=== PATIENT | male | born 1935 | race Caucasian/White ===

== ENCOUNTER 2022-05-23 13:43 | Observation (INO) | payer OTHER, MEDICARE, SELFPAY ==
[2022-05-23] VITALS (11 sets, daily range): BP systolic 101–135; BP diastolic 44–79; PULSE 78–98; RESP 16–24; TEMP 36.7–37.2; O2SAT 91–97; BMI 23.1; BMI 20.9
--- NOTE | 2022-05-23 13:47 | CRLHL7_ITS ---
For Patients: As a result of the Century Cures Act, medical imaging exams and procedure reports are released immediately into your electronic medical record. You may view this report before your referring provider. If you have questions, please contact your health care provider. INDICATION: Abdominal pain. TECHNIQUE: CT abdomen and pelvis without contrast. Coronal and sagittal reformats were generated. COMPARISON: CT of the abdomen and pelvis from 09/20/2021. FINDINGS: Lower chest: Unremarkable. Small sliding hiatal hernia. Liver: Unremarkable within limitations of lack of contrast. Gallbladder and bile ducts: Multiple dependent gallstones. Distended gallbladder. No gallbladder wall thickening or pericholecystic fluid. The bile ducts are normal in caliber Spleen: Unremarkable. Pancreas: Unremarkable. Adrenal glands: Right adrenal nodule measures Hounsfield units of less than 10, compatible with an adenoma. Left adrenal nodule measures negative Hounsfield units (3/36), compatible with an adenoma. Hyperplastic enlargement of the lateral limb of the left adrenal gland, without discrete nodule. Kidneys and Ureters: No stones or hydronephrosis. Left renal exophytic hyperdensity could be a proteinaceous or hemorrhagic cyst. Lymph Nodes and Retroperitoneum: Unremarkable. Vasculature: Atherosclerotic calcifications of the abdominal aorta and its branches. GI tract: Unremarkable. Normal in caliber. Multiple diverticula project from the colon, without findings to suggest diverticulitis. Large amount of dense stool in the distal colon and rectum. Peritoneum/Abdominal Wall: Unremarkable. No mass or infiltration. No free air or free fluid. Pelvic Viscera: Unremarkable. Bladder: Unremarkable. Bones: Stable compression deformity of T12. The bones are demineralized. Multilevel degenerative changes. No aggressive appearing lytic or blastic lesions. IMPRESSION: 1. Large volume of dense stool in the colon and rectum raises the possibility of fecal impaction. Proximal bowel loops are normal in caliber. 2. No other significant CT abnormality within limitations of lack of contrast. 3. Chronic changes as above. Please note that all CT scans at this facility use dose modulation, iterative reconstruction, and/or weight-based dosing when appropriate to reduce radiation dose to as low as reasonably achievable. Dictated by Rodrick Mccullough MD @ 05/23/2022 3:07:16 PM (Electronically Signed)
--- NOTE | 2022-05-23 13:47 | CRLHL7_ITS ---
For Patients: As a result of the Century Cures Act, medical imaging exams and procedure reports are released immediately into your electronic medical record. You may view this report before your referring provider. If you have questions, please contact your health care provider. Indication: Seizure Technique: Volumetric multidetector CT images of the head were obtained without the administration of low osmolar intravenous contrast. Comparison: None available Findings: There is no intra-axial or extra-axial fluid collection. There is no mass effect or midline shift. There is age-related cortical atrophy with mild sulcal widening and ex vacuo dilatation of the lateral ventricles. There are chronic small vessel disease changes in the subcortical and periventricular white matter without lost soliz-white differentiation. The orbits and their contents are grossly within normal limits. The bony calvarium is grossly intact. The paranasal sinuses are clear. The mastoid air cells are well aerated. Impression: Age related and chronic small vessel disease changes of the brain without acute intracranial abnormality. Please note that all CT scans at this facility use dose modulation, iterative reconstruction, and/or weight-based dosing when appropriate to reduce radiation dose to as low as reasonably achievable. Dictated by Ryan Mendoza MD @ 05/23/2022 3:06:57 PM (Electronically Signed)
--- NOTE | 2022-05-23 13:52 | ED.GENADULT ---
HPI - General Adult General Time Seen by Provider: 13:52 Date Seen: 05/23/22 Chief complaint: Unspecified Complaint, Adult Stated complaint: Siezure Time Seen by Provider: 05/23/22 13:46 Source: patient Mode of arrival: EMS Limitations: altered mental status History of Present Illness HPI narrative: The patient is an 87 year white male with Alzheimer's disease, who is cared for at home by his . Apparently they live near [place]. The patient reportedly by his discussion with the paramedics from [facility] who brought him here, felt that he had a urinary tract infection, started him on Keflex, he has had diarrhea, and he had a seizure while on the toilet today. He does have a seizure disorder ease on phenytoin. The patient states he feels well except he ?my abdomen hurts?. Due to his cognitive state is a poor historian. His wrote a nice note, force about the UTI, diarrhea, seizure. Apparently did fall, he has had no bruising about his body noted by paramedics or on initial triage. He is moving all extremities. Related Data Home Medications Medication Instructions Recorded Confirmed aspirin 81 mg chewable tablet 81 mg PO DAILY 05/23/22 05/23/22 calcium 2 tab PO TID 05/23/22 05/23/22 clopidogrel 75 mg tablet 75 mg PO DAILY 05/23/22 05/23/22 cyanocobalamin (vitamin B-12) 500 500 mcg PO DAILY 05/23/22 05/23/22 mcg tablet donepezil 10 mg tablet (Aricept) 10 mg PO DAILY 05/23/22 05/23/22 gabapentin 300 mg capsule 300 mg PO BID 05/23/22 05/23/22 lisinopril 10 mg tablet 5 mg PO DAILY 05/23/22 05/23/22 metoprolol succinate 100 mg 50 mg PO DAILY 05/23/22 05/23/22 tablet,extended release 24 hr phenytoin sodium extended 100 mg 200 mg PO HS 05/23/22 05/23/22 capsule (Dilantin Extended) phenytoin sodium extended 30 mg 60 mg PO HS 05/23/22 05/23/22 capsule rosuvastatin 40 mg tablet (Crestor) 20 mg PO HS 05/23/22 05/23/22 Allergies Allergy/AdvReac Type Severity Reaction Status Date / Time No Known Drug Allergies Allergy Verified 05/23/22 14:11 Review of Systems Status of ROS: Reports: unobtainable due to medical condition [facility] Medical History (Updated 05/24/22 @ 10:27 by Bella Mancuso MD) Benign prostatic hyperplasia with incomplete bladder emptying Cholelithiasis Chronic kidney disease, stage 3a Coronary artery disease Essential hypertension Gastroesophageal reflux disease History of alcohol abuse History of anterior wall myocardial infarction History of left heart catheterization History of small bowel obstruction Hyperlipidemia Intra-abdominal adhesions Ischemic cardiomyopathy Late onset Alzheimer's dementia without behavioral disturbance Peripheral neuropathy Seizure disorder Tobacco dependence Unstable gait Surgical History S/P left rotator cuff repair S/P right rotator cuff repair Status post exploratory laparotomy Status post insertion of drug-eluting stent into left anterior descending (LAD) artery for coronary artery disease Social History Highest level of school completed/degree received: high school graduate Smoking Status: Current every day smoker Second hand tobacco smoke exposure: No How often do you have a drink containing alcohol: never How often do you have six or more drinks on one occasion: Never AUDIT-C Alcohol total score: 0 Non-prescribed substance use: denies use Caffeine: Yes (2 cups of coffee a day) Are you now , , , , never or living with a partner: Social isolation score (0-1 are the most socially isolated patients): 1 service: Yes Exam Narrative: Exam Narrative: Objective: The patient is an 87-year-old male who is somewhat disheveled, has evidence of diarrhea. Vital signs unremarkable HEENT shows dry mucous membranes Neck is supple Chest is clear Heart rhythm regular 2/6 systolic murmur Abdomen benign soft, but mild guarding due to discomfort. No palpable masses Extremities are no edema Neurologic nonfocal upper lower extremities moving all extremities, hip movement bilaterally is unremarkable, pelvis stable Const: Vital Signs, click to edit/add: Vital Signs - 24 hr 05/23/22 17:00 05/23/22 18:13 05/23/22 17:30 Temperature 98.1 F Pulse Rate [Left P ulse Oximeter] 81 78 Pulse Rate [Left R adial] 85 Respiratory Rate 16 Blood Pressure [Le ft Arm] 135/69 Blood Pressure [Ri ght Upper Arm] 126/65 Pulse Oximetry 94 Oxygen Delivery Me thod Room Air 05/23/22 20:15 05/23/22 22:48 05/23/22 22:48 Temperature 98.9 F 98.8 F Pulse Rate [Left P ulse Oximeter] Pulse Rate [Left R adial] 78 80 80 Respiratory Rate 16 24 24 Blood Pressure [Le ft Arm] 105/44 L 123/69 Blood Pressure [Ri ght Upper Arm] Pulse Oximetry 96 91 Oxygen Delivery Me thod Room Air Room Air 05/24/22 02:16 05/24/22 07:49 05/24/22 07:49 Temperature 99.6 F 98.4 F Pulse Rate [Left P ulse Oximeter] Pulse Rate [Left R adial] 90 87 87 Respiratory Rate 24 22 22 Blood Pressure [Le ft Arm] 111/63 108/65 Blood Pressure [Ri ght Upper Arm] Pulse Oximetry 91 91 Oxygen Delivery Me thod Room Air Room Air Course Vital Signs Vital signs: Initial Vital Signs Temperature 98.3 F 05/23/22 13:48 Temperature Source Temporal Artery Scan 05/23/22 13:48 Pulse Rate 98 05/23/22 13:48 Blood Pressure 126/74 05/23/22 13:48 Blood Pressure Mean 91 05/23/22 13:48 Blood Pressure Position Supine 05/23/22 13:48 Pulse Oximetry 97 05/23/22 13:48 Oxygen Delivery Method 05/23/22 13:48 Vital Signs Temperature 98.3 F 05/23/22 13:48 Pulse Rate 98 05/23/22 13:48 Blood Pressure 126/74 05/23/22 13:48 Pulse Oximetry 97 05/23/22 13:48 Oxygen Delivery Method 05/23/22 13:48 Temperature 97.6 F 05/24/22 14:00 Pulse Rate 82 05/24/22 14:00 Respiratory Rate 21 05/24/22 14:00 Blood Pressure 114/69 05/24/22 14:00 Pulse Oximetry 93 05/24/22 14:00 Oxygen Delivery Method 05/24/22 14:00 Medical Decision Making MDM Narrative Medical decision making narrative: The patient is an 87 white male with Alzheimer's disease and history of a seizure disorder who lives at home with his , who does most of the care for him per the paramedics. He apparently has had diarrhea, she is concerned about a UTI, started him on Keflex today, he has had diarrhea for a couple of days, and had a seizure while he was on the toilet today. He apparently did fall, was not injured. He denies discomfort or problems right now that he says ?my stomach hurts ?. Patient denies chest pain, shortness of breath, fevers or chills, but he does have L time risen is a generally poor historian Addendum: The patient's white blood cell count is markedly elevated at 24,000 four thousand, blood cultures and urine culture be obtained, IV antibiotics to be started. The patient will get hydration in the form of normal saline. His head CT scan looks unremarkable other than chronic age-related changes, his abdominal pelvic CT shows fecal retention, no obvious obstruction or intra-abdominal infection or abscess. Patient with history of elevated white count, seizure, generalized debility and L mcneill Disease likely should be admitted for IV fluids, antibiotics until cultures return, C diff. Will discuss with hospitalist. Lab Data Labs: Lab Results 05/23/22 05/23/22 05/23/22 Range/Units 13:48 14:12 14:12 WBC 24.25 H (4.50-11.00) K/uL RBC 4.27 L (4.30-5.90) m/uL Hgb 13.1 L (13.5-17.5) gm/dL Hct 40.4 (37.0-53.0) % MCV 95 (80-100) fL MCH 31 (26-34) pg MCHC 32 (32-36) gm/dL RDW Coeff of Frank 14.4 (11.5-15.5) % Plt Count 501 H (140-440) K/uL Neut % (Auto) 88.6 H (42.0-72.0) % Lymph % (Auto) 4.3 L (20-44) % [place] % (Auto) 6.8 (0.0-11.0) % Eos % (Auto) 0.0 (0.0-7.0) % Baso % (Auto) 0.1 (0.0-3.0) % Neut # (Auto) 21.50 H (1.7-7.0) K/uL Lymph # (Auto) 1.00 (0.90-2.90) K/uL [place] # (Auto) 1.60 H (0.00-0.90) K/UL Eos # (Auto) 0.00 (0.00-0.50) K/uL Baso # (Auto) 0.00 (0.00-0.30) K/uL Abs Immat Gran (auto) 0.06 (0.00-0.30) K/uL Diff Slide Review (Acceptable) INR (0.91-1.10) APTT (23-33) Seconds VBG pH (7.32-7.43) VBG pCO2 (40-50) mmHG VBG pO2 (25-47) mmHG VBG HCO3 (21-28) mmol/L Sodium 131 L (135-149) mmol/L Potassium 3.9 (3.6-5.1) mmol/L Chloride 98 (96-114) mmol/L Carbon Dioxide 28 (20-32) mmol/L BUN 13 (7-30) mg/dL Creatinine 1.4 (0.5-1.5) mg/dL Estimated Creat Clear 42.07 Estimated GFR 49 ml/min Glucose 122 H (60-115) mg/dL Lactate (0.5-1.9) mmol/L Venous Lactic Acid (Serial Order) Calcium 8.3 L (8.4-10.6) mg/dL Total Bilirubin (0.1-1.5) mg/dL Direct Bilirubin (0.0-0.5) mg/dL AST (12-35) U/L ALT (4-50) U/L Alkaline Phosphatase (40-150) U/L C-Reactive Protein 0.6 (0.5-1.0) mg/dL NT-Pro-B Natriuret Pep (0-450) PG/mL Total Protein (6.0-8.3) g/dL Albumin (3.3-5.0) g/dL Amylase 56 (18-89) U/L Urine Color (Yellow) Urine Appearance (Clear) Urine pH (5.0-8.5) Ur Specific Ponce (1.000-1.030) Urine Protein (Negative) Urine Glucose (UA) (Negative) Urine Ketones (Negative) Urine Blood (Negative) Urine Nitrite (Negative) Urine Bilirubin (Negative) Urine Urobilinogen (0.2-1.0) Ur Leukocyte Esterase (Negative) Urine RBC (0-2) Urine WBC (0-5) Ur Squamous Epith Cells (None-Few) Hyaline Casts (None-Few) Stl C.difficile Tox PCR (Negative) Phenytoin (10.0-20.0) ug/mL Free Phenytoin Total Phenytoin Percent Free Phenytoin Ethyl Alcohol < 0.01 L (0.01-0.03) % St C. diff Tox Epid 027 (Negative) SARS-CoV-2 (PCR) Negative SARS-CoV-2 (Negative) 05/23/22 05/23/22 05/23/22 Range/Units 14:12 14:12 14:12 WBC (4.50-11.00) K/uL RBC (4.30-5.90) m/uL Hgb (13.5-17.5) gm/dL Hct (37.0-53.0) % MCV (80-100) fL MCH (26-34) pg MCHC (32-36) gm/dL RDW Coeff of Frank (11.5-15.5) % Plt Count (140-440) K/uL Neut % (Auto) (42.0-72.0) % Lymph % (Auto) (20-44) % [place] % (Auto) (0.0-11.0) % Eos % (Auto) (0.0-7.0) % Baso % (Auto) (0.0-3.0) % Neut # (Auto) (1.7-7.0) K/uL Lymph # (Auto) (0.90-2.90) K/uL [place] # (Auto) (0.00-0.90) K/UL Eos # (Auto) (0.00-0.50) K/uL Baso # (Auto) (0.00-0.30) K/uL Abs Immat Gran (auto) (0.00-0.30) K/uL Diff Slide Review (Acceptable) INR 0.98 (0.91-1.10) APTT 28 (23-33) Seconds VBG pH 7.377 (7.32-7.43) VBG pCO2 49 (40-50) mmHG VBG pO2 33.8 (25-47) mmHG VBG HCO3 29 H (21-28) mmol/L Sodium (135-149) mmol/L Potassium (3.6-5.1) mmol/L Chloride (96-114) mmol/L Carbon Dioxide (20-32) mmol/L BUN (7-30) mg/dL Creatinine (0.5-1.5) mg/dL Estimated Creat Clear Estimated GFR ml/min Glucose (60-115) mg/dL Lactate (0.5-1.9) mmol/L Venous Lactic Acid (Serial Order) Calcium (8.4-10.6) mg/dL Total Bilirubin 0.6 (0.1-1.5) mg/dL Direct Bilirubin 0.0 (0.0-0.5) mg/dL AST 32 (12-35) U/L ALT 12 (4-50) U/L Alkaline Phosphatase 183 H (40-150) U/L C-Reactive Protein (0.5-1.0) mg/dL NT-Pro-B Natriuret Pep 4000 H (0-450) PG/mL Total Protein 7.4 (6.0-8.3) g/dL Albumin 3.8 (3.3-5.0) g/dL Amylase (18-89) U/L Urine Color (Yellow) Urine Appearance (Clear) Urine pH (5.0-8.5) Ur Specific Ponce (1.000-1.030) Urine Protein (Negative) Urine Glucose (UA) (Negative) Urine Ketones (Negative) Urine Blood (Negative) Urine Nitrite (Negative) Urine Bilirubin (Negative) Urine Urobilinogen (0.2-1.0) Ur Leukocyte Esterase (Negative) Urine RBC (0-2) Urine WBC (0-5) Ur Squamous Epith Cells (None-Few) Hyaline Casts (None-Few) Stl C.difficile Tox PCR (Negative) Phenytoin (10.0-20.0) ug/mL Free Phenytoin Total Phenytoin Percent Free Phenytoin Ethyl Alcohol (0.01-0.03) % St C. diff Tox Epid 027 (Negative) SARS-CoV-2 (PCR) (Negative) 05/23/22 05/23/22 05/23/22 Range/Units 14:12 14:12 14:12 WBC (4.50-11.00) K/uL RBC (4.30-5.90) m/uL Hgb (13.5-17.5) gm/dL Hct (37.0-53.0) % MCV (80-100) fL MCH (26-34) pg MCHC (32-36) gm/dL RDW Coeff of Frank (11.5-15.5) % Plt Count (140-440) K/uL Neut % (Auto) (42.0-72.0) % Lymph % (Auto) (20-44) % [place] % (Auto) (0.0-11.0) % Eos % (Auto) (0.0-7.0) % Baso % (Auto) (0.0-3.0) % Neut # (Auto) (1.7-7.0) K/uL Lymph # (Auto) (0.90-2.90) K/uL [place] # (Auto) (0.00-0.90) K/UL Eos # (Auto) (0.00-0.50) K/uL Baso # (Auto) (0.00-0.30) K/uL Abs Immat Gran (auto) (0.00-0.30) K/uL Diff Slide Review (Acceptable) INR (0.91-1.10) APTT (23-33) Seconds VBG pH (7.32-7.43) VBG pCO2 (40-50) mmHG VBG pO2 (25-47) mmHG VBG HCO3 (21-28) mmol/L Sodium (135-149) mmol/L Potassium (3.6-5.1) mmol/L Chloride (96-114) mmol/L Carbon Dioxide (20-32) mmol/L BUN (7-30) mg/dL Creatinine (0.5-1.5) mg/dL Estimated Creat Clear Estimated GFR ml/min Glucose (60-115) mg/dL Lactate (0.5-1.9) mmol/L Venous Lactic Acid (Serial Order) Calcium (8.4-10.6) mg/dL Total Bilirubin (0.1-1.5) mg/dL Direct Bilirubin (0.0-0.5) mg/dL AST (12-35) U/L ALT (4-50) U/L Alkaline Phosphatase (40-150) U/L C-Reactive Protein (0.5-1.0) mg/dL NT-Pro-B Natriuret Pep (0-450) PG/mL Total Protein (6.0-8.3) g/dL Albumin (3.3-5.0) g/dL Amylase (18-89) U/L Urine Color (Yellow) Urine Appearance (Clear) Urine pH (5.0-8.5) Ur Specific Ponce (1.000-1.030) Urine Protein (Negative) Urine Glucose (UA) (Negative) Urine Ketones (Negative) Urine Blood (Negative) Urine Nitrite (Negative) Urine Bilirubin (Negative) Urine Urobilinogen (0.2-1.0) Ur Leukocyte Esterase (Negative) Urine RBC (0-2) Urine WBC (0-5) Ur Squamous Epith Cells (None-Few) Hyaline Casts (None-Few) Stl C.difficile Tox PCR (Negative) Phenytoin 5.3 L (10.0-20.0) ug/mL Free Phenytoin Cancelled Total Phenytoin Cancelled Percent Free Phenytoin Cancelled Ethyl Alcohol (0.01-0.03) % St C. diff Tox Epid 027 (Negative) SARS-CoV-2 (PCR) (Negative) 05/23/22 05/23/22 05/24/22 Range/Units 14:48 17:00 08:55 WBC 25.28 H* (4.50-11.00) K/uL RBC 3.86 L (4.30-5.90) m/uL Hgb 12.0 L (13.5-17.5) gm/dL Hct 36.3 L (37.0-53.0) % MCV 94 (80-100) fL MCH 31 (26-34) pg MCHC 33 (32-36) gm/dL RDW Coeff of Frank 14.5 (11.5-15.5) % Plt Count 401 (140-440) K/uL Neut % (Auto) 83.9 H (42.0-72.0) % Lymph % (Auto) 6.0 L (20-44) % [place] % (Auto) 9.3 (0.0-11.0) % Eos % (Auto) 0.0 (0.0-7.0) % Baso % (Auto) 0.2 (0.0-3.0) % Neut # (Auto) 21.20 H (1.7-7.0) K/uL Lymph # (Auto) 1.50 (0.90-2.90) K/uL [place] # (Auto) 2.40 H (0.00-0.90) K/UL Eos # (Auto) 0.00 (0.00-0.50) K/uL Baso # (Auto) 0.10 (0.00-0.30) K/uL Abs Immat Gran (auto) 0.14 (0.00-0.30) K/uL Diff Slide Review Acceptable Review (Acceptable) INR (0.91-1.10) APTT (23-33) Seconds VBG pH (7.32-7.43) VBG pCO2 (40-50) mmHG VBG pO2 (25-47) mmHG VBG HCO3 (21-28) mmol/L Sodium (135-149) mmol/L Potassium (3.6-5.1) mmol/L Chloride (96-114) mmol/L Carbon Dioxide (20-32) mmol/L BUN (7-30) mg/dL Creatinine (0.5-1.5) mg/dL Estimated Creat Clear Estimated GFR ml/min Glucose (60-115) mg/dL Lactate (0.5-1.9) mmol/L Venous Lactic Acid (Serial Order) Calcium (8.4-10.6) mg/dL Total Bilirubin (0.1-1.5) mg/dL Direct Bilirubin (0.0-0.5) mg/dL AST (12-35) U/L ALT (4-50) U/L Alkaline Phosphatase (40-150) U/L C-Reactive Protein (0.5-1.0) mg/dL NT-Pro-B Natriuret Pep (0-450) PG/mL Total Protein (6.0-8.3) g/dL Albumin (3.3-5.0) g/dL Amylase (18-89) U/L Urine Color Yellow (Yellow) Urine Appearance Clear (Clear) Urine pH 7.5 (5.0-8.5) Ur Specific Ponce 1.020 (1.000-1.030) Urine Protein 1+ A (Negative) Urine Glucose (UA) Negative (Negative) Urine Ketones Negative (Negative) Urine Blood 1+ A (Negative) Urine Nitrite Positive A (Negative) Urine Bilirubin Negative (Negative) Urine Urobilinogen 0.2 (0.2-1.0) Ur Leukocyte Esterase Negative (Negative) Urine RBC 5-10 A (0-2) Urine WBC 0-2 (0-5) Ur Squamous Epith Cells Few (None-Few) Hyaline Casts Few (None-Few) Stl C.difficile Tox PCR Negative (Negative) Phenytoin (10.0-20.0) ug/mL Free Phenytoin Total Phenytoin Percent Free Phenytoin Ethyl Alcohol (0.01-0.03) % St C. diff Tox Epid 027 PRESUMPTIVE NEGATIVE (Negative) SARS-CoV-2 (PCR) (Negative) 05/24/22 05/24/22 Range/Units 08:55 08:55 WBC (4.50-11.00) K/uL RBC (4.30-5.90) m/uL Hgb (13.5-17.5) gm/dL Hct (37.0-53.0) % MCV (80-100) fL MCH (26-34) pg MCHC (32-36) gm/dL RDW Coeff of Frank (11.5-15.5) % Plt Count (140-440) K/uL Neut % (Auto) (42.0-72.0) % Lymph % (Auto) (20-44) % [place] % (Auto) (0.0-11.0) % Eos % (Auto) (0.0-7.0) % Baso % (Auto) (0.0-3.0) % Neut # (Auto) (1.7-7.0) K/uL Lymph # (Auto) (0.90-2.90) K/uL [place] # (Auto) (0.00-0.90) K/UL Eos # (Auto) (0.00-0.50) K/uL Baso # (Auto) (0.00-0.30) K/uL Abs Immat Gran (auto) (0.00-0.30) K/uL Diff Slide Review (Acceptable) INR (0.91-1.10) APTT (23-33) Seconds VBG pH (7.32-7.43) VBG pCO2 (40-50) mmHG VBG pO2 (25-47) mmHG VBG HCO3 (21-28) mmol/L Sodium 134 L (135-149) mmol/L Potassium 3.7 (3.6-5.1) mmol/L Chloride 105 (96-114) mmol/L Carbon Dioxide 23 (20-32) mmol/L BUN 15 (7-30) mg/dL Creatinine 1.4 (0.5-1.5) mg/dL Estimated Creat Clear 38.14 Estimated GFR 49 ml/min Glucose 93 (60-115) mg/dL Lactate 0.9 (0.5-1.9) mmol/L Venous Lactic Acid (Serial Order) Calcium 8.0 L (8.4-10.6) mg/dL Total Bilirubin 0.3 (0.1-1.5) mg/dL Direct Bilirubin (0.0-0.5) mg/dL AST 15 (12-35) U/L ALT 9 (4-50) U/L Alkaline Phosphatase 141 (40-150) U/L C-Reactive Protein (0.5-1.0) mg/dL NT-Pro-B Natriuret Pep (0-450) PG/mL Total Protein 6.2 (6.0-8.3) g/dL Albumin 3.1 L (3.3-5.0) g/dL Amylase (18-89) U/L Urine Color (Yellow) Urine Appearance (Clear) Urine pH (5.0-8.5) Ur Specific [place]once (1.000-1.030) Urine Protein (Negative) Urine Glucose (UA) (Negative) Urine Ketones (Negative) Urine Blood (Negative) Urine Nitrite (Negative) Urine Bilirubin (Negative) Urine Urobilinogen (0.2-1.0) Ur Leukocyte Esterase (Negative) Urine RBC (0-2) Urine WBC (0-5) Ur Squamous Epith Cells (None-Few) Hyaline Casts (None-Few) Stl C.difficile Tox PCR (Negative) Phenytoin (10.0-20.0) ug/mL Free Phenytoin Total Phenytoin Percent Free Phenytoin Ethyl Alcohol (0.01-0.03) % St C. diff Tox Epid 027 (Negative) SARS-CoV-2 (PCR) (Negative) Discharge Plan Discharge Clinical Impression: Diarrhea, Seizure, Weakness Patient Disposition: Admitted As Inpatient Condition: Stable
--- NOTE | 2022-05-23 14:45 | ED.NURSE ---
Small skin tear on pt's posterior R calf bandaged with telfa and coban.
[2022-05-23 14:47] LABS: Basophils Percent Auto 0.1 % (0.0-3.0); Hematocrit 40.4 % (37.0-53.0); Hemoglobin* 13.1 gm/dL (13.5-17.5); Immature Granulocytes Abs Auto 0.06 K/uL (0.00-0.30); Lymphocytes Percent Auto 4.3 % (20-44); Mean Corpuscular HGB Conc 32 gm/dL (32-36); Mean Corpuscular Hemoglobin 31 pg (26-34); Mean Corpuscular Volume 95 fL (80-100); Monocytes Percent Auto 6.8 % (0.0-11.0); Neutrophils Percent Auto 88.6 % (42.0-72.0); Platelet Count* 501 K/uL (140-440); RDW Coefficient of Variation % 14.4 % (11.5-15.5); Red Blood Count 4.27 m/uL (4.30-5.90); White Blood Count* 24.25 K/uL (4.50-11.00)
--- NOTE | 2022-05-23 14:48 | ED.NURSE ---
Pt incontinent of stool. Pt changed out of clothing and dirty brief into clean brief and gown. Clean linens applied to bed. Pt continues to be incontinent of stool, nearly constant but very small amounts of liquid stool. Pt assisted to commode. Unable to provide UA at this time. Small amount of liquid stool collected from hat and given to lab.
[2022-05-23 14:50] LABS: Slide Review Reflex No
[2022-05-23 14:53] LABS: HCO3 VBG 29 mmol/L (21-28); PCO2 VBG 49 mmHG (40-50); PO2 VBG 33.8 mmHG (25-47); pH VBG 7.377 (7.32-7.43)
[2022-05-23 15:01] LABS: SARS PCR* Negative SARS-CoV-2 (Negative)
[2022-05-23] MEDS: 0.9 % SODIUM CHLORIDE 1000 ml 1,000 ML 6000 ML IV (15:18)
[2022-05-23] MEDS: PIPERACILLIN/TAZOBACTAM 3.375 GM in 0.9 % SODIUM CHLORIDE Mini-bag 100 ML IVPB (15:20)
--- NOTE | 2022-05-23 15:37 | ED.NURSE ---
Pt's Bruna called for an update, pt okay with chief underwriter updating her. Update provided. Bruna's phone number: [phone]
[2022-05-23 15:41] LABS: Chloride* 98 mmol/L (96-114); Potassium* 3.9 mmol/L (3.6-5.1); Sodium* 131 mmol/L (135-149)
[2022-05-23 15:43] LABS: Amylase* 56 U/L (18-89); Creatinine* 1.4 mg/dL (0.5-1.5); Est. Creatinine Clearance* 42.07; Estimated Glomerular Filt Rate 49 ml/min
[2022-05-23 15:43] LABS: C.Difficile Negative (Negative); CDIFFEPI 027 PRESUMPTIVE NEGATIVE (Negative)
[2022-05-23 15:44] LABS: Blood Urea Nitrogen* 13 mg/dL (7-30); Calcium* 8.3 mg/dL (8.4-10.6); Carbon Dioxide* 28 mmol/L (20-32); Glucose* 122 mg/dL (60-115)
[2022-05-23 15:47] LABS: C Reactive Protein* 0.6 mg/dL (0.5-1.0); Ethanol* < 0.01 % (0.01-0.03)
[2022-05-23 16:16] LABS: INR 0.98 (0.91-1.10); Partial Thromboplastin Time* 28 Seconds (23-33); Prothrombin Time 13.4 Seconds
[2022-05-23 16:27] LABS: Albumin* 3.8 g/dL (3.3-5.0)
[2022-05-23 16:30] LABS: Bilirubin Total* 0.6 mg/dL (0.1-1.5); Total Protein* 7.4 g/dL (6.0-8.3)
[2022-05-23 16:31] LABS: Alanine Aminotransferase* 12 U/L (4-50); Alkaline Phosphatase* 183 U/L (40-150); Aspartate Amino Transferase* 32 U/L (12-35)
[2022-05-23 16:40] LABS: NT Pro B Type NatriureticPept* 4000 PG/mL (0-450)
--- NOTE | 2022-05-23 17:00 | ED.NURSE ---
16Fr Espinosa catheter placed at direction of MD García. 10mL in syringe balloon. Approx 1200 mLs in drainage after placement. UA collected and sent to lab.
[2022-05-23 17:17] LABS: Phenytoin Dilantin* 5.3 ug/mL (10.0-20.0)
--- NOTE | 2022-05-23 17:18 | W.PC.EDHO ---
Primary Language: Greenlandic Preferred Language: Orientation Status: [] Alert & Oriented [] Slight Confusion [x] Known Dx Dementia Transfers By: [] Assist of 1 [x] Assist of 2 [] Lift Active Medications Discontinued Medications Generic Name Dose Route Start Last Admin Trade Name Enzo PRN Reason Stop Dose Admin Sodium Chloride 1,000 mls @ 6,000 mls/hr 05/23/22 14:00 05/23/22 15:18 0.9 % Sodium Chloride 1000 Ml IV 05/23/22 14:09 6,000 mls/hr .Q10M ARIADNE Administration Piperacillin Sod/Tazobactam 100 mls @ 200 mls/hr 05/23/22 14:54 05/23/22 15:58 Sod 3.375 gm/ Sodium Chloride IVPB 05/23/22 14:55 Infused ONCE ONE Infusion Description of Symptoms ED Triage Present Problem Pt hx of seizure disorder, UTIs, and bowel Description obstruction. Pt has diarrhea. Had seizure this AM while having a BM. Also has blood in urine, being treated for UTI. Female History Patient Pain Pain Description [Lower Dull, Achy Abdomen] Pain Description [Lower Dull, Achy Abdomen] Pain Intensity [Lower Abdomen] 1 Pain Intensity [Lower Abdomen] 1 Pain Intensity 1 Pain Intensity 1 Pain Scale Used [Lower Abdomen Numeric (1 - 10) ] Pain Scale Used [Lower Abdomen Numeric (1 - 10) ] Pain Scale Used Numeric (1 - 10) Pain Scale Used Numeric (1 - 10) Pain Frequency [Lower Abdomen] Constant IV Insertion/Site Date of IV Line Insertion [ 05/23/22 Left Antecubital] Oxygen Administration Pulse Oximetry 93 Pulse Oximetry 97 Oxygen Delivery Method Room Air Oxygen Delivery Method Room Air Cardiac Monitoring EKG Method 12 Lead
[2022-05-23 17:19] LABS: Appearance Urine Clear (Clear); Bilirubin Urine Negative (Negative); Blood Urine 1+ (Negative); Color Urine Yellow (Yellow); Glucose Urine Negative (Negative); Ketones Urine Negative (Negative); Leukocyte Esterase Urine Negative (Negative); Nitrite Urine Positive (Negative); Protein Urine 1+ (Negative); Urobilinogen Urine 0.2 (0.2-1.0); pH Urine 7.5 (5.0-8.5)
--- NOTE | 2022-05-23 17:32 | ED.NURSE ---
Addendum entered by Samuel Roth RN 05/23/22 17:42: Scant amount of blood noted at urethral meatus when brief was changed. Original Note: Pt continues to be incontinent of small amount of liquid stool. Pt cleaned with estrella wipes and clean brief applied.
--- NOTE | 2022-05-23 17:34 | PM.IMHP1 ---
Hospitalist- H&P: HPI History of Present Illness Time Seen by Provider: 15:30 Date Seen: 05/23/22 Chief complaint: Siezure Narrative: Shiv Fernandez is a 87 year old man with a known seizure disorder for which he is on the antiepileptic medication phenytoin daily. While sitting on the toilet today he had a seizure episode. subsequently summoned EMS who brought him into the emergency department for further assessment. Patient has underlying Alzheimer's type of dementia. With his episode of seizure earlier today he is still somewhat somnolent. Much of the information we obtained is from his . Has had a couple of days of some abdominal discomfort. Does not always have a daily bowel movement. Has had episodes of loose stools the last few days. Denies fevers, rigors, diaphoresis. Also denies dysuria, urgency, frequency, or hematuria. As far as he is where he is emptying his bladder. Oral intake has not changed from his usual. Denies nausea, vomiting, dyspepsia, dysphagia, odynophagia. Denies aspiration. No recent trauma, injury, or travel. To the best of his ability and his 's ability to discern they have not been exposed to COVID recently. Has not had any recent runny nose, cough, shortness of breath, chest heaviness, pressure, tightness, or pain. No recent lightheadedness or dizziness. Review of Systems Status of ROS: Reports: 6 or more systems reviewed and unremarkable except as noted in History and below Narrative: No alteration in ability to communicate. Sleeps much of the day. is his primary caregiver. indicates that she is not able to continue to meet his needs at this time. No weight gain or weight loss. No focal motor neurologic deficits. No heat or cold intolerance. Denies polyuria, polydipsia, polyphagia. Weight reportedly has been stable. Denies unusual myalgias or arthralgias or swollen joints. Denies rashes. Historically he has had urinary retention and required Espinosa catheter while in hospital. Has not had a catheter now for over 6 months. Last time he had this was in September of 2021. [facility] Medical History (Updated 05/23/22 @ 18:19 by Kulwinder García MD) Benign prostatic hyperplasia with incomplete bladder emptying Cholelithiasis Chronic kidney disease, stage 3a Coronary artery disease Essential hypertension Gastroesophageal reflux disease History of alcohol abuse History of anterior wall myocardial infarction History of left heart catheterization History of small bowel obstruction Hyperlipidemia Intra-abdominal adhesions Ischemic cardiomyopathy Late onset Alzheimer's dementia without behavioral disturbance Peripheral neuropathy Seizure disorder Tobacco dependence Unstable gait Surgical History S/P left rotator cuff repair S/P right rotator cuff repair Status post exploratory laparotomy Status post insertion of drug-eluting stent into left anterior descending (LAD) artery for coronary artery disease Social History Highest level of school completed/degree received: high school graduate Smoking Status: Current every day smoker Second hand tobacco smoke exposure: No How often do you have a drink containing alcohol: never How often do you have six or more drinks on one occasion: Never AUDIT-C Alcohol total score: 0 Non-prescribed substance use: denies use Caffeine: Yes (2 cups of coffee a day) Are you now , , , , never or living with a partner: Social isolation score (0-1 are the most socially isolated patients): 1 service: Yes Meds Home Medications and Allergies Home Medications Medication Instructions Recorded Confirmed Type aspirin 81 mg chewable tablet 81 mg PO DAILY 05/23/22 05/23/22 History calcium 2 tab PO TID 05/23/22 05/23/22 History clopidogrel 75 mg tablet mg 05/23/22 History cyanocobalamin (vitamin B-12) 500 500 mcg PO DAILY 05/23/22 05/23/22 History mcg tablet donepezil 10 mg tablet (Aricept) 10 mg PO DAILY 05/23/22 05/23/22 History gabapentin 300 mg capsule 300 mg PO BID 05/23/22 05/23/22 History lisinopril 10 mg tablet 5 mg PO DAILY 05/23/22 05/23/22 History metoprolol succinate 100 mg 50 mg PO DAILY 05/23/22 05/23/22 History tablet,extended release 24 hr phenytoin sodium extended 100 mg 200 mg PO HS 05/23/22 05/23/22 History capsule (Dilantin Extended) phenytoin sodium extended 30 mg 60 mg PO HS 05/23/22 05/23/22 History capsule rosuvastatin 40 mg tablet (Crestor) 20 mg PO HS 05/23/22 05/23/22 History Allergies Allergy/AdvReac Type Severity Reaction Status Date / Time No Known Drug Allergies Allergy Verified 05/23/22 14:11 Exam Narrative: Exam Narrative: Does not appear in any acute distress. He is sound asleep on the cot in the emergency department when I 1st see him. Is arousable. When awake he is alert and oriented to self, reorient tubal to place, time. Does not recall much of what happened at all or how he arrived here. Cooperative. Appears thin. Prominent bony features of face. Thin neck and upper and lower extremities consistent with muscle atrophy. Somewhat hard of hearing but is symmetric and bilateral. Normal external auditory canals and tympanic membranes. Midline nasal septum. Dentition good repair. Buccal mucosa somewhat tacky. No oral lesions. No bite [place]. No icterus. No conjunctival injection. Pupils equally round and reactive to light and accommodation. Extraocular muscles intact. Neck is supple. Midline trachea. No JVD, hepatojugular reflux, or carotid bruits. No lymphadenopathy in the pre or postauricular chains, anterior-posterior cervical chains, submandibular submental fossa, supra or infraclavicular fossa, or axilla bilaterally. Lungs clear to auscultation without wheezing, rhonchi, or rales. No CVA tenderness. Heart tones with regular rhythm, normal S1-S2. Soft systolic murmur. No gallop or rub. PMI not laterally displaced. Abdomen with active bowel sounds, soft, nontender. No rebound or guarding. Somewhat full suprapubic area of abdomen. Palpable upper extremity pulses and barely palpable lower extremity pulses. No lower extremity edema. With assistance he is able to transfer from supine to sitting and sitting to standing. Seems to have generalized weakness. Skin is intact. No rashes, petechiae, cyanosis. Const: Vital Signs, click to edit/add: Vital Signs - 24 hr 05/23/22 13:48 05/23/22 13:50 05/23/22 15:10 Temperature 98.3 F Pulse Rate [Left P ulse Oximeter] 98 Blood Pressure [Ri ght Upper Arm] 126/74 126/74 101/59 L Pulse Oximetry 97 Oxygen Delivery Me thod Room Air 05/23/22 15:30 05/23/22 16:00 05/23/22 16:30 Temperature Pulse Rate [Left P ulse Oximeter] 81 80 81 Blood Pressure [Ri ght Upper Arm] 105/60 122/79 131/73 Pulse Oximetry 93 95 Oxygen Delivery Me thod Room Air Room Air Documenting provider has reviewed patient's vital signs: yes Hospitalist - H&P: Result Labs Labs: Short CBC 05/23/22 Range/Units 14:12 WBC 24.25 H (4.50-11.00) K/uL Hgb 13.1 L (13.5-17.5) gm/dL Hct 40.4 (37.0-53.0) % Plt Count 501 H (140-440) K/uL BMP 05/23/22 14:12 Sodium 131 L Potassium 3.9 Chloride 98 Carbon Dioxide 28 BUN 13 Creatinine 1.4 Glucose 122 H Calcium 8.3 L Liver Function 05/23/22 Range/Units 14:12 Total Bilirubin 0.6 (0.1-1.5) mg/dL Direct Bilirubin 0.0 (0.0-0.5) mg/dL AST 32 (12-35) U/L ALT 12 (4-50) U/L Alkaline Phosphatase 183 H (40-150) U/L Albumin 3.8 (3.3-5.0) g/dL Urine 05/23/22 Range/Units 17:00 Urine Color Yellow (Yellow) Urine Appearance Clear (Clear) Urine pH 7.5 (5.0-8.5) Ur Specific [place] 1.020 (1.000-1.030) Urine Protein 1+ A (Negative) Urine Glucose (UA) Negative (Negative) Imaging CT scan - head: Attestation: I have reviewed the pertinent imaging results. Radiologist's impression: Age related and chronic small vessel disease changes of the brain without acute intracranial abnormality. CT scan - abdomen: Attestation: I have reviewed the pertinent imaging results. Radiologist's impression: 1. Large volume of dense stool in the colon and rectum raises the possibility of fecal impaction. Proximal bowel loops are normal in caliber. 2. No other significant CT abnormality within limitations of lack of contrast. 3. Chronic changes as above. Assessment and Plan Assessment and plan (1) Breakthrough seizure: Status: Acute Assessment and Plan: 1. He has not had a breakthrough seizure for several months. No obvious infectious etiology apparent at this time. Certainly has the distended urinary bladder now with a postvoid residual volume of 1200 mL. There is always the possibility that he might have a bladder infection as his suspects. 2. Check a phenytoin level. 3. Continue on his usual dose of phenytoin. 4. Should he have a repeat seizure in a relatively short period of time may need to be concerned about the possibility of status epilepticus. 5. I suspect the leukocytosis that we see is actually related to demargination from his breakthrough seizure episode today. Right now I am doubtful that this is a manifestation of a severe infection or sepsis. (2) Seizure disorder: Status: Acute Assessment and Plan: 1. His seizures have been well managed for the last several months. 2. It is unusual for him to have a breakthrough seizure. (3) Late onset Alzheimer's dementia without behavioral disturbance: Status: Acute Assessment and Plan: 1. About 10% of the time individuals with Alzheimer's dementia can have seizure disorder. It is unclear if the seizure disorder is directly related to Alzheimer's disease verses primary seizure disorder. 2. indicates that it she is unable to care for her anymore at this time in his current state health. 3. Admit to the hospital for now and assess. Will have Physical and nurseryman assistant with this assessment effort. Will work with administrator social welfare to try to establish a safe discharge disposition plan. (4) Diarrhea: Status: Acute Assessment and Plan: 1. Most likely this is due to his constipation. 2. C diff testing here in the hospital is negative at this juncture. 3. Consider efforts to evacuate the rectum. (5) Weakness: Status: Acute Assessment and Plan: 1. Appears to be acute on chronic. 2. Will work with physical and occupational therapy to assess and assist. (6) Unstable gait: Status: Acute Assessment and Plan: 1. Again will work with physical and occupational therapy to assist and assess. (7) Tobacco dependence: Status: Acute Assessment and Plan: 1. He declines any patches or inhaler nicotine replacement at this juncture. (8) Benign prostatic hyperplasia with incomplete bladder emptying: Status: Acute Assessment and Plan: 1. Continue with the tamsulosin. (9) Urinary retention with incomplete bladder emptying: Status: Acute Assessment and Plan: 1. For now will leave Espinosa catheter in place. 2. Continue to reassess while here in the hospital to make decision about transitioning over to straight caths versus stain with the Espinosa catheter in place. Plan 1. Reviewed impression with patient and via phone. Both agreeable to admission to the hospital while we sort through this. 2. Continue supportive efforts. 3. Anticipate patient may be ready for discharge from the hospital possibly as early as 2-3 days from now. Will ask administrator social welfare to assist with discharge disposition planning.
--- NOTE | 2022-05-23 17:40 | ED.NURSE ---
Call made to pt's Bruna to update her on pt's admission.
--- NOTE | 2022-05-23 17:45 | ED.NURSE ---
Report called to M/S RN.
[2022-05-23 18:04] LABS: Squamous Epithelial Cell Urine Few (None-Few); WBC Urine 0-2 (0-5)
[2022-05-23 18:05] LABS: Hyaline Casts Urine Few (None-Few)
--- NOTE | 2022-05-23 18:21 | PC.NURSE ---
End of Shift Note: Patient just arrived to Med/Surg from ER by w/c. Patient noted to be very shaky when standing. Did have two people and assisted him to his bed. Has a fung cath in place that is draining kathy colored urine was inc of stool. Did estrella care and changed his brief. As we were going through the admission question patient fell asleep. Slight confusion noted when asking him about person, place and time. Will continue to monitor seizure pads are in place and bed alarm on.
--- NOTE | 2022-05-23 18:31 | PC.NURSE ---
patient had a fung cath placed in ER
[2022-05-23] MEDS: GABAPENTIN 300 MG CAPSULE PO (20:27)
--- NOTE | 2022-05-23 22:08 | PC.NURSE ---
END OF SHIFT NOTE: PT PLEASANT AND COOPERATIVE. SLIGHTLY CONFUSED. PT KNEW NAME, , AND THAT HE WAS IN HOSPITAL DUE TO A SEIZURE. UNSURE OF TIME OF DAY AND LOCATION. VSS AND WNL ON RA. AFEBRILE. LS WITH INSPIRATORY AND EXPIRATORY WHEEZES AND RHONCHI. PT HAS MOIST NON-PRODUCTIVE COUGH. SLIGHT HEART MURMUR NOTED. BRASWELL IN PLACE, PATENT AND DRAINING DARK YUSUF/ORANGE URINE. - IAN. PT BRIEF CHECKED AND CLEAN, REPOSITIONED FOR COMFORT. PT DENIES CP, SOB, N/V.
[2022-05-23] MEDS: PHENYTOIN SODIUM 30 MG 60 MG PO (22:29)
[2022-05-23] MEDS: PHENYTOIN EXTENDED RELEASE 100 MG CAPSULE 200 MG PO (22:29)
[2022-05-24 02:16] VITALS: BP 111/63; PULSE 90; RESP 24; TEMP 37.6; O2SAT 91
--- NOTE | 2022-05-24 06:05 | PC.NURSE ---
pt cooperative. Slept throughout the night. 2x sm loose stool in brief, linens and gown changed. Rhonchi auscultated throughout lungs. Occasional moist cough. O2 sats 90-92%. Epsinosa patent and draining kathy urine. Afebrile.
[2022-05-24 07:49] VITALS: BP 108/65; PULSE 87; RESP 22; TEMP 36.9; O2SAT 91
--- NOTE | 2022-05-24 08:03 | CRLHL7_ITS ---
For Patients: As a result of the Century Cures Act, medical imaging exams and procedure reports are released immediately into your electronic medical record. You may view this report before your referring provider. If you have questions, please contact your health care provider. INDICATION: COUGH TECHNIQUE: 09/22/2021 COMPARISON: 09/22/2021 FINDINGS: Cardiovascular and mediastinum: Cardiac silhouette is upper limits of normal. There is tortuosity of the aorta along with vascular calcifications. Lungs and pleural spaces: Mild areas of scarring. No infiltrate or edema. No pneumothorax. Decreased effusions. Bones and soft tissues: Chronic changes of both shoulders. IMPRESSION: No acute findings. Dictated by Tony De Leon MD @ 05/24/2022 8:53:09 AM (Electronically Signed)
--- NOTE | 2022-05-24 08:28 | PC.NURSE ---
Addendum entered by Ramandeep Davila RN 05/24/22 19:59: New orders for Flomax received, administered. Pt. denied pain or nausea entire shift. Tolerating reg. diet, activity w/in room. Several small, loose stools. MD aware. Moving w/Ax1 in room, mainly because of catheter. Pt. forgetful that it is in place, attempts to step over it. WBC count elevated; MD aware- no new orders at this time. Urine light kathy in color. Original Note: Updated MD of expiratory rhonchi and no labs ordered for today. CXR and urgent labs placed by MD. Pt. currently resting comfortably. Radiology passport completed, updated lab and imaging that pt. ready. Pt w/intermittent moist cough, able to clear secretions. RN has not yet seen sputum.
[2022-05-24 09:03] LABS: Lactate* 0.9 mmol/L (0.5-1.9)
[2022-05-24 09:07] LABS: Basophils Percent Auto 0.2 % (0.0-3.0); Hematocrit 36.3 % (37.0-53.0); Immature Granulocytes Abs Auto 0.14 K/uL (0.00-0.30); Mean Corpuscular HGB Conc 33 gm/dL (32-36); Mean Corpuscular Hemoglobin 31 pg (26-34); Mean Corpuscular Volume 94 fL (80-100); Monocytes Percent Auto 9.3 % (0.0-11.0); Neutrophils Percent Auto 83.9 % (42.0-72.0); Platelet Count* 401 K/uL (140-440); RDW Coefficient of Variation % 14.5 % (11.5-15.5); Red Blood Count 3.86 m/uL (4.30-5.90)
[2022-05-24 09:20] LABS: Slide Review Reflex Yes; White Blood Count* 25.28 K/uL (4.50-11.00)
[2022-05-24] MEDS: lisinopriL 10 MG TABLET 5 MG PO (09:26)
[2022-05-24] MEDS: CYANOCOBALAMIN (VITAMIN B-12) 500 MCG TABLET PO (09:27)
[2022-05-24] MEDS: CLOPIDOGREL 75 MG TABLET PO (09:31)
[2022-05-24 09:32] LABS: Albumin* 3.1 g/dL (3.3-5.0); Chloride* 105 mmol/L (96-114)
[2022-05-24 09:33] LABS: Potassium* 3.7 mmol/L (3.6-5.1); Sodium* 134 mmol/L (135-149)
[2022-05-24] MEDS: DONEPEZIL 10 MG TABLET PO (09:33)
[2022-05-24 09:34] LABS: Slide Review Acceptable Review (Acceptable)
[2022-05-24] MEDS: GABAPENTIN 300 MG CAPSULE PO ×2 (09:34→22:01)
[2022-05-24 09:35] LABS: Bilirubin Total* 0.3 mg/dL (0.1-1.5); Carbon Dioxide* 23 mmol/L (20-32); Creatinine* 1.4 mg/dL (0.5-1.5); Est. Creatinine Clearance* 38.14; Estimated Glomerular Filt Rate 49 ml/min; Total Protein* 6.2 g/dL (6.0-8.3)
[2022-05-24 09:36] LABS: Alanine Aminotransferase* 9 U/L (4-50); Alkaline Phosphatase* 141 U/L (40-150); Aspartate Amino Transferase* 15 U/L (12-35); Blood Urea Nitrogen* 15 mg/dL (7-30); Glucose* 93 mg/dL (60-115)
[2022-05-24] MEDS: METOPROLOL SUCCINATE (XL) 50 MG TAB PO (09:51)
--- NOTE | 2022-05-24 10:26 | P.IMPN_ITS ---
Progress Note: A&P Assessment and plan (1) Seizure disorder: Status: Acute (2) Breakthrough seizure: Status: Acute Assessment and Plan: Phenytoin level low, reviewed with pharmacy. Will increase dose from 260mg --->300mg HS. (3) Late onset Alzheimer's dementia without behavioral disturbance: Status: Acute Assessment and Plan: Redirectable, behaviors appropriate (4) Weakness: Status: Acute Assessment and Plan: Appreciate input from PT, OT, and SW regarding placement for higher level of care given age, deocnditioning, and comorbidities. (5) Tobacco dependence: Status: Acute Assessment and Plan: At this time, patient tolerating stay without cigarettes. (6) Leukocytosis: Status: Acute Assessment and Plan: No evidence of acute infection on admission imaging nor CXR this morning. + Nitrite in UA, culture currently NGTD. Leukocytosis presumably demargination, will continue to follow and initiate antibiotics if warranted. Plan As above. Continue Bong Hose, SCDs, and home Plavix dosing for prophylaxis. Time Spent With Patient Total time spent: 35, >50% in chart review and coordination of care with team Subjective Date Seen: 05/24/22 Interval history: No acute events overnight, no recurrent seizure activity. Shiv denies any concerns for me today; he states no pain, all gain when I ask how he is feeling. Exam Narrative: Exam Narrative: GEN: Alert, intermittently confused but redirectable HEENT: Normal external ears, EOMIs bilaterally, no scleral icterus CV: RRR, No concerning murmurs, rubs, or gallops R: Air movement decreased but adequate. Mild rhonchi bilateral bases Ext: wwp, no concerning edema Skin: No concerning skin lesions or rashes on exposed skin Neuro: Nonfocal, no resting tremor, moving extremities x4. Negative pronator drift Psych: Appropriate for chronic conditions Const: Vital Signs, click to edit/add: Vital Signs - 24 hr 05/23/22 13:48 05/23/22 13:50 05/23/22 15:10 Temperature 98.3 F Pulse Rate [Left P ulse Oximeter] 98 Pulse Rate [Left R adial] Respiratory Rate Blood Pressure [Le ft Arm] Blood Pressure [Ri ght Upper Arm] 126/74 126/74 101/59 L Pulse Oximetry 97 Oxygen Delivery Me thod Room Air 05/23/22 15:30 05/23/22 16:00 05/23/22 17:00 Temperature Pulse Rate [Left P ulse Oximeter] 81 80 81 Pulse Rate [Left R adial] Respiratory Rate Blood Pressure [Le ft Arm] Blood Pressure [Ri ght Upper Arm] 105/60 122/79 126/65 Pulse Oximetry 93 95 Oxygen Delivery Me thod Room Air Room Air 05/23/22 16:30 05/23/22 18:13 05/23/22 17:30 Temperature 98.1 F Pulse Rate [Left P ulse Oximeter] 81 78 Pulse Rate [Left R adial] 85 Respiratory Rate 16 Blood Pressure [Le ft Arm] 135/69 Blood Pressure [Ri ght Upper Arm] 131/73 Pulse Oximetry 94 Oxygen Delivery Me thod Room Air 05/23/22 20:15 05/23/22 22:48 05/23/22 22:48 Temperature 98.9 F 98.8 F Pulse Rate [Left P ulse Oximeter] Pulse Rate [Left R adial] 78 80 80 Respiratory Rate 16 24 24 Blood Pressure [Le ft Arm] 105/44 L 123/69 Blood Pressure [Ri ght Upper Arm] Pulse Oximetry 96 91 Oxygen Delivery Me thod Room Air Room Air 05/24/22 02:16 05/24/22 07:49 05/24/22 07:49 Temperature 99.6 F 98.4 F Pulse Rate [Left P ulse Oximeter] Pulse Rate [Left R adial] 90 87 87 Respiratory Rate 24 22 22 Blood Pressure [Le ft Arm] 111/63 108/65 Blood Pressure [Ri ght Upper Arm] Pulse Oximetry 91 91 Oxygen Delivery Me thod Room Air Room Air Labs Labs: Laboratory Results - last 24 hr 05/23/22 05/23/22 05/23/22 13:48 14:12 14:12 WBC 24.25 H RBC 4.27 L Hgb 13.1 L Hct 40.4 MCV 95 MCH 31 MCHC 32 RDW Coeff of Frank 14.4 Plt Count 501 H Neut % (Auto) 88.6 H Lymph % (Auto) 4.3 L [place] % (Auto) 6.8 Eos % (Auto) 0.0 Baso % (Auto) 0.1 Neut # (Auto) 21.50 H Lymph # (Auto) 1.00 [place] # (Auto) 1.60 H Eos # (Auto) 0.00 Baso # (Auto) 0.00 Abs Immat Gran (auto) 0.06 Diff Slide Review INR APTT VBG pH VBG pCO2 VBG pO2 VBG HCO3 Sodium 131 L Potassium 3.9 Chloride 98 Carbon Dioxide 28 BUN 13 Creatinine 1.4 Estimated Creat Clear 42.07 Estimated GFR 49 Glucose 122 H Lactate Venous Lactic Acid (Serial Order) Calcium 8.3 L Total Bilirubin Direct Bilirubin AST ALT Alkaline Phosphatase C-Reactive Protein 0.6 NT-Pro-B Natriuret Pep Total Protein Albumin Amylase 56 Urine Color Urine Appearance Urine pH Ur Specific [place] Urine Protein Urine Glucose (UA) Urine Ketones Urine Blood Urine Nitrite Urine Bilirubin Urine Urobilinogen Ur Leukocyte Esterase Urine RBC Urine WBC Ur Squamous Epith Cells Hyaline Casts Stl C.difficile Tox PCR Phenytoin Free Phenytoin Total Phenytoin Percent Free Phenytoin Ethyl Alcohol < 0.[address] C. diff Tox Epid 027 SARS-CoV-2 (PCR) Negative SARS-CoV-2 05/23/22 05/23/22 05/23/22 14:12 14:12 14:12 WBC RBC Hgb Hct MCV MCH MCHC RDW Coeff of Frank Plt Count Neut % (Auto) Lymph % (Auto) [place] % (Auto) Eos % (Auto) Baso % (Auto) Neut # (Auto) Lymph # (Auto) [place] # (Auto) Eos # (Auto) Baso # (Auto) Abs Immat Gran (auto) Diff Slide Review INR 0.98 APTT 28 VBG pH 7.377 VBG pCO2 49 VBG pO2 33.8 VBG HCO3 29 H Sodium Potassium Chloride Carbon Dioxide BUN Creatinine Estimated Creat Clear Estimated GFR Glucose Lactate Venous Lactic Acid (Serial Order) Calcium Total Bilirubin 0.6 Direct Bilirubin 0.0 AST 32 ALT 12 Alkaline Phosphatase 183 H C-Reactive Protein NT-Pro-B Natriuret Pep 4000 H Total Protein 7.4 Albumin 3.8 Amylase Urine Color Urine Appearance Urine pH Ur Specific [place] Urine Protein Urine Glucose (UA) Urine Ketones Urine Blood Urine Nitrite Urine Bilirubin Urine Urobilinogen Ur Leukocyte Esterase Urine RBC Urine WBC Ur Squamous Epith Cells Hyaline Casts Stl C.difficile Tox PCR Phenytoin Free Phenytoin Total Phenytoin Percent Free Phenytoin Ethyl Alcohol St C. diff Tox Epid 027 SARS-CoV-2 (PCR) 05/23/22 05/23/22 05/23/22 14:12 14:12 14:12 WBC RBC Hgb Hct MCV MCH MCHC RDW Coeff of Frank Plt Count Neut % (Auto) Lymph % (Auto) [place] % (Auto) Eos % (Auto) Baso % (Auto) Neut # (Auto) Lymph # (Auto) [place] # (Auto) Eos # (Auto) Baso # (Auto) Abs Immat Gran (auto) Diff Slide Review INR APTT VBG pH VBG pCO2 VBG pO2 VBG HCO3 Sodium Potassium Chloride Carbon Dioxide BUN Creatinine Estimated Creat Clear Estimated GFR Glucose Lactate Venous Lactic Acid (Serial Order) Calcium Total Bilirubin Direct Bilirubin AST ALT Alkaline Phosphatase C-Reactive Protein NT-Pro-B Natriuret Pep Total Protein Albumin Amylase Urine Color Urine Appearance Urine pH Ur Specific [place] Urine Protein Urine Glucose (UA) Urine Ketones Urine Blood Urine Nitrite Urine Bilirubin Urine Urobilinogen Ur Leukocyte Esterase Urine RBC Urine WBC Ur Squamous Epith Cells Hyaline Casts Stl C.difficile Tox PCR Phenytoin 5.3 L Free Phenytoin Cancelled Total Phenytoin Cancelled Percent Free Phenytoin Cancelled Ethyl Alcohol St C. diff Tox Epid 027 SARS-CoV-2 (PCR) 05/23/22 05/23/22 05/24/22 14:48 17:00 08:55 WBC 25.28 H* RBC 3.86 L Hgb 12.0 L Hct 36.3 L MCV 94 MCH 31 MCHC 33 RDW Coeff of Frank 14.5 Plt Count 401 Neut % (Auto) 83.9 H Lymph % (Auto) 6.0 L [place] % (Auto) 9.3 Eos % (Auto) 0.0 Baso % (Auto) 0.2 Neut # (Auto) 21.20 H Lymph # (Auto) 1.50 [place] # (Auto) 2.40 H Eos # (Auto) 0.00 Baso # (Auto) 0.10 Abs Immat Gran (auto) 0.14 Diff Slide Review Acceptable Review INR APTT VBG pH VBG pCO2 VBG pO2 VBG HCO3 Sodium Potassium Chloride Carbon Dioxide BUN Creatinine Estimated Creat Clear Estimated GFR Glucose Lactate Venous Lactic Acid (Serial Order) Calcium Total Bilirubin Direct Bilirubin AST ALT Alkaline Phosphatase C-Reactive Protein NT-Pro-B Natriuret Pep Total Protein Albumin Amylase Urine Color Yellow Urine Appearance Clear Urine pH 7.5 Ur Specific [place] 1.020 Urine Protein 1+ A Urine Glucose (UA) Negative Urine Ketones Negative Urine Blood 1+ A Urine Nitrite Positive A Urine Bilirubin Negative Urine Urobilinogen 0.2 Ur Leukocyte Esterase Negative Urine RBC 5-10 A Urine WBC 0-2 Ur Squamous Epith Cells Few Hyaline Casts Few Stl C.difficile Tox PCR Negative Phenytoin Free Phenytoin Total Phenytoin Percent Free Phenytoin Ethyl Alcohol St C. diff Tox Epid 027 PRESUMPTIVE NEGATIVE SARS-CoV-2 (PCR) 05/24/22 05/24/22 08:55 08:55 WBC RBC Hgb Hct MCV MCH MCHC RDW Coeff of Frank Plt Count Neut % (Auto) Lymph % (Auto) [place] % (Auto) Eos % (Auto) Baso % (Auto) Neut # (Auto) Lymph # (Auto) [place] # (Auto) Eos # (Auto) Baso # (Auto) Abs Immat Gran (auto) Diff Slide Review INR APTT VBG pH VBG pCO2 VBG pO2 VBG HCO3 Sodium 134 L Potassium 3.7 Chloride 105 Carbon Dioxide 23 BUN 15 Creatinine 1.4 Estimated Creat Clear 38.14 Estimated GFR 49 Glucose 93 Lactate 0.9 Venous Lactic Acid (Serial Order) Calcium 8.0 L Total Bilirubin 0.3 Direct Bilirubin AST 15 ALT 9 Alkaline Phosphatase 141 C-Reactive Protein NT-Pro-B Natriuret Pep Total Protein 6.2 Albumin 3.1 L Amylase Urine Color Urine Appearance Urine pH Ur Specific [place] Urine Protein Urine Glucose (UA) Urine Ketones Urine Blood Urine Nitrite Urine Bilirubin Urine Urobilinogen Ur Leukocyte Esterase Urine RBC Urine WBC Ur Squamous Epith Cells Hyaline Casts Stl C.difficile Tox PCR Phenytoin Free Phenytoin Total Phenytoin Percent Free Phenytoin Ethyl Alcohol St C. diff Tox Epid 027 SARS-CoV-2 (PCR)
--- NOTE | 2022-05-24 13:26 | PC.SOCIAL ---
Called pt's , Bruna Fernandez. Bruna stated she is able to provide care for pt. upon discharge and was not requesting additional support or assistance with pt. Bruna states her home is set up to be able to provide care to the pt. with no additional assistance. Provided information to nursing staff.
[2022-05-24 14:00] VITALS: BP 114/66; PULSE 76; RESP 22; TEMP 37.7; O2SAT 94
[2022-05-24 15:00] VITALS: PULSE 76; RESP 22
[2022-05-24] MEDS: TAMSULOSIN HCL 0.4 MG CAPSULE PO (16:12)
[2022-05-24 19:00] VITALS: BP 106/63; PULSE 76; RESP 20; TEMP 36.9; O2SAT 93
[2022-05-24] MEDS: PHENYTOIN EXTENDED RELEASE 100 MG CAPSULE 300 MG PO (22:00)
[2022-05-24] MEDS: ROSUVASTATIN CALCIUM 10 MG TABLET 20 MG PO (22:01)
[2022-05-24 23:00] VITALS: BP 105/66; PULSE 74; RESP 18; TEMP 36.8; O2SAT 92
[2022-05-25 03:23] VITALS: RESP 16
[2022-05-25 06:23] LABS: Lactate* 0.6 mmol/L (0.5-1.9)
--- NOTE | 2022-05-25 06:35 | PC.NURSE ---
SHIFT NOTE 19-07: Pt pleasantly confused, A&O to self. Denies pain, SOB, CP, and N/V. Up SBA and tolerating well. Espinosa patent and draining.
[2022-05-25 06:41] LABS: Basophils Percent Auto 0.2 % (0.0-3.0); Eosinophils Percent Auto 0.7 % (0.0-7.0); Hematocrit 32.8 % (37.0-53.0); Hemoglobin* 10.8 gm/dL (13.5-17.5); Immature Granulocytes Abs Auto 0.08 K/uL (0.00-0.30); Lymphocytes Percent Auto 11.5 % (20-44); Mean Corpuscular HGB Conc 33 gm/dL (32-36); Mean Corpuscular Hemoglobin 31 pg (26-34); Mean Corpuscular Volume 95 fL (80-100); Monocytes Percent Auto 8.4 % (0.0-11.0); Neutrophils Percent Auto 78.8 % (42.0-72.0); Platelet Count* 379 K/uL (140-440); RDW Coefficient of Variation % 14.6 % (11.5-15.5); Red Blood Count 3.47 m/uL (4.30-5.90); White Blood Count* 20.07 K/uL (4.50-11.00)
[2022-05-25 06:56] LABS: Slide Review Reflex No
[2022-05-25 06:58] LABS: Chloride* 102 mmol/L (96-114); Potassium* 3.6 mmol/L (3.6-5.1); Sodium* 133 mmol/L (135-149)
[2022-05-25 07:01] LABS: Blood Urea Nitrogen* 22 mg/dL (7-30); Carbon Dioxide* 28 mmol/L (20-32); Creatinine* 1.5 mg/dL (0.5-1.5); Estimated Glomerular Filt Rate 45 ml/min; Glucose* 94 mg/dL (60-115)
[2022-05-25 07:02] LABS: Calcium* 7.8 mg/dL (8.4-10.6)
[2022-05-25 07:50] VITALS: RESP 16
[2022-05-25 08:08] VITALS: BP 117/62; PULSE 68; RESP 18; TEMP 36.6; O2SAT 93
[2022-05-25] MEDS: DONEPEZIL 10 MG TABLET PO (08:54)
[2022-05-25] MEDS: CYANOCOBALAMIN (VITAMIN B-12) 500 MCG TABLET PO (08:54)
[2022-05-25] MEDS: GABAPENTIN 300 MG CAPSULE PO (08:54)
[2022-05-25] MEDS: CLOPIDOGREL 75 MG TABLET PO (08:54)
[2022-05-25] MEDS: METOPROLOL SUCCINATE (XL) 50 MG TAB PO (08:54)
[2022-05-25] MEDS: TAMSULOSIN HCL 0.4 MG CAPSULE PO (08:55)
[2022-05-25] MEDS: lisinopriL 10 MG TABLET 5 MG PO (08:55)
--- NOTE | 2022-05-25 10:10 | P.DS_ITS ---
DS: Providers Provider Date Seen: 05/25/22 Date of admission: 05/24/22 13:45 Primary care physician: Dr. Esequiel Villasenor at [facility] Admitting Clinician: Kulwinder García MD Consults: 05/24/22 08:36 Consult to Personal Caregiver [CONS] Routine Comment: Reason for Consult:: Discharge Planning Needs Attending Physician on discharge: Bella Mancuso MD Date of Discharge: 05/25/22 DS: Diagnosis Discharge Diagnosis (1) Leukocytosis: Status: Acute (2) Urinary retention with incomplete bladder emptying: Status: Acute (3) Tobacco dependence: Status: Acute (4) Breakthrough seizure: Status: Acute (5) Seizure disorder: Status: Acute (6) Weakness: Status: Acute DS: Summary Hospital Course Hospital Course: 87-year-old male, admitted to the hospital after breakthrough seizure home. Patient has long history of seizure disorder. Phenytoin level noted to be low upon admission; reviewed dosing with pharmacy who recommended increasing dose from 260 mg to 300 mg daily, with close outpatient follow-up. No further seizures were noted during stay. His chronic cognitive impairment remained stable, as did his comorbidity of essential hypertension Other findings during hospitalizations: - Diarrhea: Presumably secondary to severe constipation. Patient's C diff was negative on admission, he was able to fully evacuate his stools and no further diarrhea was noted - Urinary retention requiring Espinosa catheter placement: Upon placement of Espinosa on admission, 1200 mL of urine was drained from the bladder. Patient has a history of BPH and is status post TURP, his stool retention was likely also contributing to urinary retention. We initiated Flomax during stay, and patient was successful with a voiding trial on day of discharge, with no urinary retention. - Leukocytosis: White count on admission was 25. No onus of infection was identified on imaging, blood, stool, and urine cultures negative. Patient had no fevers and no complaints of illness. On chart review, it appears that he has had leukocytosis in the past. I have called and left a message for his PCP, Dr. Esequiel Villasenor, to consider outpatient workup of leukocytosis if this is within patient's goal of care - Weakness: Seen by PT and OT. SNF was discussed, but both patient and would like him to return home on discharge. Status at Discharge Cognitive/behavioral status at discharge: Baseline, known cognitive impairment Overall status at discharge: patient is progressing back to baseline Time Spent with Patient Time attestation: Total time spent providing and/or coordinating discharge services: Time spent: Greater than 30 minutes Exam Narrative: Exam Narrative: GEN: Alert and pleasant, redirectable HEENT: Normal external ears, EOMIs bilaterally, dentition poor without evidence of acute infection CV: RRR, No concerning murmurs, rubs, or gallops R: LCTA bilaterally without concerning wheezing, rales, or rhonchi Abdomen: Soft and nontender without masses Ext: wwp, no concerning edema Skin: No concerning skin lesions or rashes on exposed skin Neuro: Nonfocal Psych: Appropriate for chronic conditions Const: Vital Signs, click to edit/add: Vital Signs - 24 hr 05/24/22 14:00 05/24/22 15:00 05/24/22 19:00 Temperature 99.8 F H 98.5 F Pulse Rate [Left R adial] 76 76 76 Respiratory Rate 22 22 20 Blood Pressure [Le ft Arm] 114/66 106/63 Pulse Oximetry 94 93 Oxygen Delivery Me thod Room Air Room Air 05/24/22 23:00 05/24/22 23:00 05/25/22 03:23 Temperature 98.2 F Pulse Rate [Left R adial] 74 74 Respiratory Rate 18 18 16 Blood Pressure [Le ft Arm] 105/66 Pulse Oximetry 92 Oxygen Delivery Me thod Room Air 05/25/22 07:50 05/25/22 08:08 Temperature 97.9 F Pulse Rate [Left R adial] 68 Respiratory Rate 16 18 Blood Pressure [Le ft Arm] 117/62 Pulse Oximetry 93 Oxygen Delivery Me thod Room Air DS: Data Data Completed and Pending Labs on day of discharge: Labs from last 24 hours 05/25/22 05/25/22 05/25/22 06:05 06:05 06:05 WBC RBC Hgb Hct MCV MCH MCHC RDW Coeff of Frank Plt Count Neut % (Auto) Lymph % (Auto) [place] % (Auto) Eos % (Auto) Baso % (Auto) Neut # (Auto) Lymph # (Auto) [place] # (Auto) Eos # (Auto) Baso # (Auto) Abs Immat Gran (auto) Sodium 133 L Potassium 3.6 Chloride 102 Carbon Dioxide 28 BUN 22 Creatinine 1.5 Estimated Creat Clear 35.60 Estimated GFR 45 Glucose 94 Lactate 0.6 Calcium 7.8 L TSH 1.260 05/25/22 06:05 WBC 20.07 H RBC 3.47 L Hgb 10.8 L Hct 32.8 L MCV 95 MCH 31 MCHC 33 RDW Coeff of Frank 14.6 Plt Count 379 Neut % (Auto) 78.8 H Lymph % (Auto) 11.5 L [place] % (Auto) 8.4 Eos % (Auto) 0.7 Baso % (Auto) 0.2 Neut # (Auto) 15.80 H Lymph # (Auto) 2.30 [place] # (Auto) 1.70 H Eos # (Auto) 0.10 Baso # (Auto) 0.00 Abs Immat Gran (auto) 0.08 Sodium Potassium Chloride Carbon Dioxide BUN Creatinine Estimated Creat Clear Estimated GFR Glucose Lactate Calcium TSH Preliminary micro results at discharge 05/23/22 15:07 Blood Culture - Preliminary Blood NO GROWTH AFTER 24 HOURS 05/23/22 14:12 Blood Culture - Preliminary Blood NO GROWTH AFTER 24 HOURS Discharge Plan Discharge Disposition: Home, Self-Care Date of Admission: 05/24/22 13:45 Attending Provider on Discharge: Bella Mancuso Primary Care Provider: Provider,Not a Local Condition: Stable Anticipated Discharge Date/Time: 05/25/22 11:00 Discharge Medications: New phenytoin sodium extended 100 mg Capsule 300 mg PO HS 90 Days Qty: 270 0RF Rx Instructions: please note dose increase - take a total of 300mg daily tamsulosin 0.4 mg Capsule 0.4 mg PO DAILY 30 Days Qty: 30 0RF Continued clopidogrel 75 mg tablet 75 mg PO DAILY Label Comments: TAKE 1 TABLET BY MOUTH ONCE DAILY gabapentin 300 mg capsule 300 mg PO BID aspirin 81 mg tablet,chewable 81 mg PO DAILY donepezil [Aricept] 10 mg tablet 10 mg PO DAILY metoprolol succinate 100 mg tablet extended release 24 hr 50 mg PO DAILY rosuvastatin [Crestor] 40 mg tablet 20 mg PO HS cyanocobalamin (vitamin B-12) 500 mcg tablet 500 mcg PO DAILY lisinopril 10 mg tablet 5 mg PO DAILY calcium [calcium citrate] 2 tab PO TID Label Comments: PER HAND-WRITTEN NOTE THESE ARE 250 MG EACH Discontinued phenytoin sodium extended [Dilantin Extended] 100 mg capsule 200 mg PO HS phenytoin sodium extended 30 mg capsule 60 mg PO HS Discharge Orders: Discharge Order (Routine); Ordered 05/25/22 Ordered By: Bella Mancuso Patient Education: Phenytoin (By mouth), Tamsulosin (By mouth), Enlarged Prostate (BPH) (DC) Activity Restrictions/Additional Instructions: We are increasing your Phenytoin. New medication: Flomax for bladder. See Dr. Villasenor next week for a followup and recheck of your White Blood Cell Count. Activity Level: No Restrictions Discharge Diet: Regular Follow Up Appointments: Esequiel Villasenor MD [Other] - 05/29/22 12:30 pm Provider,Not a Local [Primary Care Provider] - (See PCP (Dr Esequiel Villasenor at [facility]) next week. Clinic # is [phone]. Fax # is [phone] for records) Forms: [email or web address] Info Instructions
--- NOTE | 2022-05-25 11:35 | PC.NURSE ---
Pt DC instructions given, questions answered. DC to home in stable condition. Accompanied by son.
== END 2022-05-25 11:30 | disposition home or self-care (01) ==
LOC: ED 15:09 → MEDSURG 05-24 15:08
PROVIDERS: Family Medicine; Admitting Provider Internal Medicine; Emergency Provider Family Medicine; Visit Provider Internal Medicine
DX: G40.909 Epilepsy, unspecified, not intractable, without status epilepticus (principal); R33.9 Retention of urine, unspecified; R39.14 Feeling of incomplete bladder emptying; N40.1 Benign prostatic hyperplasia with lower urinary tract symptoms; D72.829 Elevated white blood cell count, unspecified; F17.200 Nicotine dependence, unspecified, uncomplicated; R53.1 Weakness; G31.84 Mild cognitive impairment of uncertain or unknown etiology; R19.7 Diarrhea, unspecified; K59.00 Constipation, unspecified; Z46.6 Encounter for fitting and adjustment of urinary device; G30.1 Alzheimer's disease with late onset; F02.80 Dementia in other diseases classified elsewhere, unspecified severity, without behavioral disturbance, psychotic disturbance, mood disturbance, and anxiety; I10 Essential (primary) hypertension; R26.81 Unsteadiness on feet; Z79.82 Long term (current) use of aspirin; F10.11 Alcohol abuse, in remission; I25.2 Old myocardial infarction; W19.XXXA Unspecified fall, initial encounter; N32.89 Other specified disorders of bladder; Z79.899 Other long term (current) drug therapy
CPT/HCPCS: 36415; 70450; 71045; 74176; 80048; 80053; 80076; 80185; 80186; 81001; 82077; 82150; 82803; 83605; 83880; 84443; 85025; 85610; 85730; 86140; 87040; 87045; 87046; 87086; 87427; 87493; 87635; 93005; 96361; 96365; 99285; A9270; G0378; G0379; J2543; J7030